=== PATIENT | male | born 1975 | race Caucasian/White ===

== ENCOUNTER → 2016-11-15 | Outpatient (CLI) | payer OTHER | END | disposition home or self-care (01) | LOC: C.PATHSPEC 17:19 | PROVIDERS: ATTEND Orthopaedic Surgery | DX: M65.841 Other synovitis and tenosynovitis, right hand (principal) ==

== ENCOUNTER → 2016-11-15 | Outpatient (CLI) | payer OTHER ==
[2016-11-15 17:43] LABS: SYNOVIAL FLUID APPEARANCE TURBID; SYNOVIAL FLUID COLOR RED; SYNOVIAL FLUID MONONUC RELAT 21.9 %; SYNOVIAL FLUID POLYNUC RELAT 78.1 %
== END | disposition home or self-care (01) ==
LOC: C.LABSPEC 12:50
PROVIDERS: ATTEND Orthopaedic Surgery
DX: M65.841 Other synovitis and tenosynovitis, right hand (principal)